=== PATIENT | female | born 1985 | race Caucasian/White ===

== ENCOUNTER → 2018-12-06 | Outpatient (REF) | payer BC ==
[2018-12-09 14:26] LABS: HPV HYBRID CAPTURE II Negative (Negative)
== END ==
LOC: M LAB LCGH 12:03
PROVIDERS: ATTEND Nurse Practitioner Adult Health
DX: Z12.4 Encounter for screening for malignant neoplasm of cervix (principal)
CPT/HCPCS: 87624; G0123

== ENCOUNTER → 2023-01-20 | Outpatient (REF) | payer BC | LOC: M SFHCDERM 17:41 | PROVIDERS: ATTEND Physician Assistant | DX: L57.0 Actinic keratosis (principal); L90.5 Scar conditions and fibrosis of skin ==